=== PATIENT | male | born 1955 | race Caucasian/White ===

== ENCOUNTER → 2017-06-09 | Day surgery (SDC) | payer OTHER ==
[~2017-06-09] MED LIST: APREPITANT 40 MG CAP ONE; KETOROLAC TROMETHAMINE 30 MG/ML (IVP) VIAL IV PUSH ONE; LACTATED RINGER'S 1000 ML INJ 1,000 ML IV ONE; MIDAZOLAM HCL 2 MG/2 ML VIAL ONE; ONDANSETRON HCL 4 MG/2 ML VIAL IV PUSH ONE; PROPOFOL 200 MG/20 ML AMP IV ONE; TRIAMCINOLONE ACETONIDE 40 MG/ML VIAL ONE; ceFAZolin INJ 1,000 MG VIAL ONE
--- NOTE | 2017-06-09 16:50 | TN ---
cc: JATIN CAPELLAN ALBERT W. M.D. DATE OF SURGERY 06/09/2017 PREOPERATIVE DIAGNOSIS Right knee internal derangement. POSTOPERATIVE DIAGNOSIS Right knee complex tear medial meniscus, moderate chondromalacia medial femoral condyle, mild chondromalacia patellofemoral compartment. PROCEDURE Right knee arthroscopic surgery - subtotal medial meniscectomy. SURGEON Evans Amaya MD ASSESSMENT Staff SPECIMENS None. BLOOD LOSS None. COMPLICATIONS None. ANESTHESIA General. DRAINS None. TOURNIQUET TIME 13 minutes at 250 mmHg CONDITION Stable PLAN OF ACTIVITY As per orders. PROCEDURE The patient was brought to the operating room and had satisfactory general anesthesia by Dr. Radha Chavez department of anesthesia. Right lower extremity was prepped and draped in usual sterile manner. The extremity was exsanguinated by Yunior wrap tourniquet inflated to 250 mmHg. Routine anterolateral and anterior medial port hole was made. Introduction of the arthroscopic incisions instruments were performed. Inflation of the knee was made with sterile Ringer's lactated solution. Inspection of the patellofemoral compartment revealed the patient to have mild to moderate degree of synovitis. Patient found to have mild degree of chondromalacia of the patellofemoral compartment. Lateral compartment revealed the patient have mild to moderate chondromalacia involving the lateral femoral condyle. Anterior cruciate ligament found to have a remote but not a complete anterior cruciate ligament injury. There is no evidence of any instability to the anterior cruciate ligament. The medial compartment revealed the patient have a complex tear involving the posterior medial meniscus with damage to the medial femoral condyle from this torn meniscus. With a moderate degree of chondromalacia of the medial femoral condyle articular surface with chondromalacia. Subtotal medial meniscectomy performed using meniscal rongeurs and lux. Chondroplasty with shaving of the articular surface were also performed by the medial femoral condyle. The knee was irrigated with copious amounts of sterile Ringer's lactated solution. Arthroscopic instruments were removed. Tourniquet deflated. Knee was injected with 1 cc of Kenalog 40. Incision was closed with 3-0 nylon suture. Sterile dressings were applied. The patient tolerated the procedure well and arrived in recovery in stable and satisfactory condition. MD SUSSY Boone/REUBEN /4:07 PM /4:25 PM PAOLO
== END | disposition home or self-care (01) ==
LOC: ESDC 13:47
PROVIDERS: ATTEND Orthopaedic Surgery Orthopaedic Surgery of the Spine
DX: S83.231A Complex tear of medial meniscus, current injury, right knee, initial encounter (principal); M94.261 Chondromalacia, right knee
CPT/HCPCS: 01400; 29881; J0690; J1885; J2250; J2405; J3010; J3301; J7120; J8501